=== PATIENT | male | born 1970 | race Caucasian/White ===

== ENCOUNTER 2022-08-08 08:07 | Day surgery (SDC) | payer BC ==
[2022-08-07 11:48] VITALS: BMI 23.4
[2022-08-08 09:20] VITALS: TEMP 97.3
[2022-08-08] MEDS ORDERED: PROPOFOL 20 ML ONE (09:56)
[2022-08-08] MEDS ORDERED: BUPIVACAINE HCL/PF 0.25% (2.5MG/ML) 10 ML VIAL IJ ONE (10:21)
[2022-08-08 11:02] VITALS: RESP 16
[2022-08-08 12:14] VITALS: BP 124/72; PULSE 72
== END 2022-08-08 11:25 | disposition home or self-care (01) ==
LOC: FASU 08:07
PROVIDERS: ATTEND Orthopaedic Surgery Hand Surgery
PROC: 0LN80ZZ Release Left Hand Tendon, Open Approach (ICD-10-PCS; principal; 2022-08-08 10:14)
DX: M65.332 Trigger finger, left middle finger (principal)